=== PATIENT | male | born 1950 | race Hispanic/Latino ===

== ENCOUNTER 2017-07-30 14:08 | Emergency (ER) | payer BC, SELFPAY ==
[2017-07-30] MEDS ORDERED: Ketorolac Tromethamine 30 MG/ML VIAL ONE (14:52)
== END 2017-07-30 15:30 | disposition home or self-care (01) ==
LOC: ERS 14:08
DX: S29.012A Strain of muscle and tendon of back wall of thorax, initial encounter (principal); M10.9 Gout, unspecified; V43.52XA Car driver injured in collision with other type car in traffic accident, initial encounter
CPT/HCPCS: 96372; J1885